=== PATIENT | male | born 1935 | race Caucasian/White ===

== ENCOUNTER 2016-09-08 17:35 | Emergency (ER) | payer MEDICARE ==
[~2016-09-08] VITALS: Ht 182.9 cm; Wt 114.0 kg
[2016-09-08] MEDS ORDERED: ASPIRIN325 MG PO (17:51)
[2016-09-08 18:14] LABS: HEMATOCRIT 29.1 % (39.0-50.0); HEMOGLOBIN 9.1 g/dl (14.0-18.0); IMMATURE GRANULOCYTES 0.3 % (0.0-1.0); MEAN CELL VOLUME 98.6 fL CALC (80.0-100.0); MEAN CORPUSCULAR HGB 30.8 pG CALC (26.0-32.0); MEAN CORPUSCULAR HGB CONC 31.3 g/L CALC (32.0-36.0); NEUT# 1.99 thou/uL (1.82-7.42); RED BLOOD COUNT 2.95 mill/uL (4.70-6.10); RED CELL DISTRI WIDTH 14.4 % (11.5-15.5)
[2016-09-08] MEDS ORDERED: FUROSEMIDE40 MG PO (18:26)
[2016-09-08] MEDS ORDERED: METOPROL TAR25 MG PO (18:27)
[2016-09-08] MEDS ORDERED: OXYCODONE HCL5 MG PO (18:28)
[2016-09-08 18:40] LABS: ALBUMIN 3.5 g/dL (3.2-5.0); ALKALINE PHOSPHATASE 95 u/l (38-126); ANION GAP 13 (6-22 (CALC)); BILIRUBIN, TOTAL 0.4 mg/dL (0.0-1.4); BUN 24 mg/dL (8-23); BUN/CREATININE RATIO 18 (12-20 (CALC)); CALCIUM 9.2 mg/dL (8.4-10.2); CARBON DIOXIDE 30 mmol/l (22-30); CHLORIDE 100 mmol/l (95-108); CREATININE 1.3 mg/dL (0.7-1.3); GFR 53 ML/MIN (>=60 (CALC)); GFR FOR AFR.AMER. > 60 ML/MIN (>=60 (CALC)); GLUCOSE 91 mg/dL (82-115); POTASSIUM 4.6 mmol/l (3.5-5.1); SGOT/AST 34 u/l (19-48); SGPT/ALT 48 u/l (11-66); SODIUM 139 mmol/l (137-146); TOTAL PROTEIN 6.9 g/dL (6.3-8.2)
[2016-09-08 18:51] LABS: MYOGLOBIN 99 ng/mL (0 - 121)
[2016-09-08 22:22] VITALS: BP 108/62
== END 2016-09-08 22:27 | disposition home or self-care (01) | DRG 204 ==
LOC: ED 17:35
PROVIDERS: Emergency Medicine
DX: R06.02 Shortness of breath (principal); J45.909 Unspecified asthma, uncomplicated; Z95.1 Presence of aortocoronary bypass graft

== ENCOUNTER 2016-11-04 11:07 | Observation (INO) | payer MEDICARE ==
[~2016-11-04] VITALS: Ht 182.9 cm; Wt 107.4 kg
[~2016-11-04 11:07] MED LIST: ASPIRIN325 MG PO; FUROSEMIDE40 MG PO; METOPROL TAR25 MG PO; OXYCODONE HCL5 MG PO
[2016-11-04] MEDS ORDERED: ZOLPIDEM5 MG PO (11:29)
[2016-11-04] MEDS ORDERED: LIPITOR10 M1 PO (11:29)
[2016-11-04] MEDS ORDERED: ASPIRIN 81 LOW81 MG (11:29)
[2016-11-04] MEDS ORDERED: [UNRECOGNIZED DRUG - OTHER] (11:30)
[2016-11-04] MEDS ORDERED: MULTI COMPLETE PO (11:30)
[2016-11-04] MEDS ORDERED: BL POTASSIUM99 MG PO (11:30)
[2016-11-04 11:51] LABS: HEMATOCRIT 30.9 % (39.0-50.0); IMMATURE GRANULOCYTES 0.3 % (0.0-1.0); MEAN CELL VOLUME 93.9 fL CALC (80.0-100.0); MEAN CORPUSCULAR HGB 30.4 pG CALC (26.0-32.0); MEAN CORPUSCULAR HGB CONC 32.4 g/L CALC (32.0-36.0); NEUT# 1.8 thou/uL (1.82-7.42); RED BLOOD COUNT 3.29 mill/uL (4.70-6.10); RED CELL DISTRI WIDTH 15.2 % (11.5-15.5)
[2016-11-04 12:36] LABS: PROTHROMBIN TIME 11.4 SECONDS (9.0-12.5)
[2016-11-04 12:39] LABS: ALBUMIN 4.2 g/dL (3.2-5.0); ALKALINE PHOSPHATASE 64 u/l (38-126); ANION GAP 13 (6-22 (CALC)); BILIRUBIN, TOTAL 0.4 mg/dL (0.0-1.4); BUN 15 mg/dL (8-23); BUN/CREATININE RATIO 16 (12-20 (CALC)); CALCIUM 9.3 mg/dL (8.4-10.2); CARBON DIOXIDE 29 mmol/l (22-30); CHLORIDE 101 mmol/l (95-108); GFR > 60 ML/MIN (>=60 (CALC)); GFR FOR AFR.AMER. > 60 ML/MIN (>=60 (CALC)); GLUCOSE 104 mg/dL (82-115); POTASSIUM 4.2 mmol/l (3.5-5.1); SGOT/AST 40 u/l (19-48); SGPT/ALT 40 u/l (11-66); SODIUM 139 mmol/l (137-146); TOTAL PROTEIN 7.5 g/dL (6.3-8.2)
[2016-11-04 12:49] LABS: MYOGLOBIN 113 ng/mL (0 - 121)
[2016-11-04 13:11] LABS: INFLUENZA A NONE DETECTED (NONE DETECT); INFLUENZA B NONE DETECTED (NONE DETECT)
[2016-11-04 13:21] LABS: URINE BILIRUBIN - DIPSTICK NEGATIVE (NEGATIVE); URINE BLOOD DIPSTICK NEGATIVE (NEGATIVE); URINE CLARITY CLEAR; URINE COLOR YELLOW; URINE GLUCOSE - DIPSTICK NEGATIVE (NEGATIVE); URINE KETONE NEGATIVE (NEGATIVE); URINE NITRITE - DIPSTICK NEGATIVE (Negative); URINE PH 6.5 (4.5-8.0); URINE PROTEIN - DIPSTICK NEGATIVE (NEG-TRACE); URINE SPECIFIC GRAVITY <=1.005; URINE UROBILINOGEN - DIPSTICK 0.2 E.U./dL (0.2)
[2016-11-04 13:29] LABS: URINE LEUK ESTERASE NEGATIVE (NEGATIVE)
[2016-11-04 14:55] VITALS: BP 123/79
[2016-11-04 19:55] VITALS: BP 124/75
[2016-11-05] VITALS: BP 97/64
[2016-11-05 04:40] VITALS: BP 128/60
[2016-11-05 06:11] LABS: HEMATOCRIT 35.4 % (39.0-50.0); HEMOGLOBIN 11.1 g/dl (14.0-18.0); IMMATURE GRANULOCYTES 0.3 % (0.0-1.0); MEAN CELL VOLUME 95.4 fL CALC (80.0-100.0); MEAN CORPUSCULAR HGB 29.9 pG CALC (26.0-32.0); MEAN CORPUSCULAR HGB CONC 31.4 g/L CALC (32.0-36.0); NEUT# 1.94 thou/uL (1.82-7.42); RED BLOOD COUNT 3.71 mill/uL (4.70-6.10); RED CELL DISTRI WIDTH 15.1 % (11.5-15.5)
[2016-11-05 06:22] LABS: ANION GAP 14 (6-22 (CALC)); BUN 15 mg/dL (8-23); BUN/CREATININE RATIO 16 (12-20 (CALC)); CALCIUM 9.3 mg/dL (8.4-10.2); CALCULATED LDLCHOLESTEROL 72 mg/dL (62-129 (CALC)); CARBON DIOXIDE 28 mmol/l (22-30); CHLORIDE 103 mmol/l (95-108); CHOLESTEROL HDL RATIO 3.4 (<4.4 (CALC)); CREATININE 0.9 mg/dL (0.7-1.3); GFR > 60 ML/MIN (>=60 (CALC)); GFR FOR AFR.AMER. > 60 ML/MIN (>=60 (CALC)); GLUCOSE 92 mg/dL (82-115); HDL CHOLESTEROL 36 mg/dL (>=40); POTASSIUM 4.2 mmol/l (3.5-5.1); SODIUM 141 mmol/l (137-146); TOTAL CHOLESTEROL 123 mg/dl (0-199); TOTAL TRIGLYCERIDES 76 mg/dl (30-149); VLDL CHOLESTROL 15 mg/dl (0-38 (CALC))
[2016-11-05 08:45] VITALS: BP 110/68
[2016-11-05 11:45] VITALS: BP 102/61
== END 2016-11-05 12:22 | disposition home or self-care (01) ==
LOC: ENPENDDIS → ED 11:07 → ED-I 13:52 → ED 14:29 → MS2 14:30
PROVIDERS: Emergency Medicine; ADMIT Internal Medicine; ATTEND Internal Medicine
DX: R07.9 Chest pain, unspecified (principal); R06.02 Shortness of breath; F41.9 Anxiety disorder, unspecified; R53.1 Weakness; R11.0 Nausea; D64.9 Anemia, unspecified; I25.10 Atherosclerotic heart disease of native coronary artery without angina pectoris; I44.7 Left bundle-branch block, unspecified; E78.5 Hyperlipidemia, unspecified; R60.9 Edema, unspecified; C85.90 Non-Hodgkin lymphoma, unspecified, unspecified site; Z95.1 Presence of aortocoronary bypass graft; Z92.21 Personal history of antineoplastic chemotherapy; M79.89 Other specified soft tissue disorders